=== PATIENT | male | born 1940 | race Caucasian/White ===

== ENCOUNTER 2019-01-22 10:46 | Observation (INO) ==
--- NOTE | 2019-01-22 10:56 | Emergency Department Note ---
Disposition Clinical Impression: Ischemic stroke CKD (chronic kidney disease) Qualifiers: Chronic kidney disease stage: unspecified stage Qualified Code(s): N18.9 - Chr onic kidney disease, unspecified Disposition: Admitted As Inpatient Condition: Good Forms: ED Satisfaction Letter Time of Disposition: 11:45 General Adult HPI - General Stated complaint: neuro symptoms Time Seen by Provider: 01/22/19 10:49 Source: patient Limitations: no limitations Nursing Notes Reviewed: Yes Vital Signs Reviewed: Yes - History of Present Illness Pain Scale: 0 - Related Data Home Medications Medication Instructions Recorded Confirmed Ferrous Gluconate 325 mg PO BID 01/12/15 01/22/19 Loratadine [Claritin] 10 mg PO DAILY 01/12/15 01/22/19 Metoprolol [Lopressor] 12.5 mg PO BID 01/12/15 01/22/19 Multivitamin [Multi-Day Vitamins] 1 tab PO DAILY 01/12/15 01/22/19 Ranitidine HCl [Zantac] 150 mg PO BID 01/12/15 01/22/19 Aspirin 81 mg PO DAILY 02/01/15 01/22/19 Nitroglycerin [Nitrostat] 0.4 mg SL PRN PRN 01/22/19 01/22/19 Previous Rx's Medication Instructions Recorded Isosorbide MONOnitrate (24 HR) 60 mg PO DAILY #30 tab.er.24h 02/01/15 [Imdur] Allergies Allergy/AdvReac Type Severity Reaction Status Date / Time No Known Allergies Allergy Verified 01/12/15 14:04 Past Medical History - Past Medical History Medical history: Reports: asthma, GERD, hypertension, kidney stones Surgical history: Reports: herniorrhaphy Psychiatric history: Reports: no psych history - Social History Smoking Status: Former smoker Smokeless Tobacco Status: No Alcohol use: Reports: rarely Drug use: Reports: none Physical Exam - General Limitations: no limitations General appearance: alert, in no apparent distress Course Vital Signs Temperature 97.6 F 01/22/19 10:50 Pulse Rate 49 01/22/19 10:50 Respiratory Rate 18 01/22/19 10:50 Blood Pressure 112/69 01/22/19 10:50 O2 Sat by Pulse Oximetry 98 01/22/19 10:50 Temperature 97.6 F 01/22/19 10:50 Pulse Rate 46 01/22/19 11:32 Respiratory Rate 14 01/22/19 11:32 Blood Pressure 119/74 01/22/19 11:32 O2 Sat by Pulse Oximetry 99 01/22/19 11:32 Oxygen Delivery Oxygen Delivery Room Air Medical Decision Making - Lab Data Result diagrams: 01/22/19 11:07 01/22/19 11:07 Lab Results 01/22/19 01/22/19 01/22/19 Range/Units 11:07 11:07 11:07 WBC 6.9 (4.3-11.1) K/mcL RBC 4.87 (4.19-5.50) M/mcL Hgb 15.0 (12.9-16.9) g/dL Hct 46.0 (37.5-50.1) % MCV 94.5 (83.0-100.0) fL MCH 30.8 (28.0-33.3) pg MCHC 32.6 (31.6-35.5) g/dL RDW 13.1 (11.5-14.5) % Plt Count 197 (140-400) K/mcL MPV 9.5 (9.4-12.4) fL PT 11.5 (9.4-12.1) Seconds INR 1.0 APTT 32.5 (26.0-36.0) Seconds Sodium 138 (136-145) mEq/L Potassium 5.2 H (3.5-5.1) mEq/L Chloride 106 (98-107) mEq/L Carbon Dioxide 29 (23-29) mEq/L BUN 31 H (8-23) mg/dL Creatinine 1.54 H (0.70-1.30) mg/dL Est GFR ( Amer) 53 L (> 60) Est GFR (Non-Af Amer) 44 L (> 60) BUN/Creatinine Ratio 20 (6-26) Glucose 100 (70-105) mg/dL Calculated Osmolality 293 (280-300) Calcium 8.9 (8.6-10.3) mg/dL Troponin I < 0.03 (< 0.04) ng/mL TSH 2.521 (0.340-5.600) mcIU/mL Critical Care Time Critical Care Time: Yes Total Critical Care Time: 35 Attestation: Critical care performed: Time is exclusive of separately billable procedures. Time includes: direct patie nt care, patient reassessment, coordination of patient care, interpretation of data (laboratory data, radiology data, and respiratory data), review of patient's medical records, medical consultation and documentation of patient care. Procedures included in critical care time: Procedures excluded from critical care time: Attestation Statement - Attestation Attestation: I examined this patient and my medical decision-making was reviewed with the Resident Physician. I agree with the documented findings, disposition and treatment plan as described except to the extent set forth below. Patient to the ED with a sudden onset of difficulty speaking and weakness. Patient was at the [employer]. He waited until symptoms improve then drove home. noticed his speech was slurred. He is complaining of some right arm tingling. She brought him to the ED. On exam he is awake alert and appropriate. His NIH is scored as to with the sensory discrepancy on the arm and some mild slurred speech. Plan. Stroke alert was called. Patient CT scan at this time. Patient does have a history of medical brain injury from the [place]. Likely not a TPA candidate. Pelvis stroke performed. Not a TPA candidate. Symptoms are improving. He is not a candidate for tpa secondary to his prior TBI. We will admit to medicine. Labs still pending at this time.
--- NOTE | 2019-01-22 11:09 | Emergency Department Note ---
Disposition Clinical Impression: Ischemic stroke CKD (chronic kidney disease) Qualifiers: Chronic kidney disease stage: unspecified stage Qualified Code(s): N18.9 - Chr onic kidney disease, unspecified Disposition: Admitted As Inpatient Condition: Good Forms: ED Satisfaction Letter Time of Disposition: 11:44 General Adult HPI - General Chief complaint: ED Neuro Symptoms/Deficit Stated complaint: neuro symptoms Time Seen by Provider: 01/22/19 10:49 Source: patient Limitations: no limitations Nursing Notes Reviewed: Yes Vital Signs Reviewed: Yes - History of Present Illness HPI Narrative: 78-year-old male presents [facility] department concern for slurred speech. At 9:30, patient was leaving breakfast, and could not get his words out. Afterwards, he had difficulty with ambulation. Patient came to the emergency department. He was still slurring words per his and him. Also reports some numbness and tingling around his lips. 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 Is cancer free at this time. Not on any blood thinning medications. Pain Scale: 0 - Related Data Home Medications Medication Instructions Recorded Confirmed Ferrous Gluconate 325 mg PO BID 01/12/15 03/22/16 Loratadine [Claritin] 10 mg PO DAILY 01/12/15 03/22/16 Metoprolol [Lopressor] 25 mg PO BID 01/12/15 03/22/16 Multivitamin [Multi-Day Vitamins] 1 tab PO DAILY 01/12/15 03/22/16 Ranitidine HCl [Zantac] 150 mg PO BID 01/12/15 03/22/16 Aspirin 81 mg PO DAILY 02/01/15 03/22/16 Nitroglycerin [Nitrostat] 0.4 mg SL PRN PRN 01/22/19 01/22/19 Previous Rx's Medication Instructions Recorded Isosorbide MONOnitrate (24 HR) 60 mg PO DAILY #30 tab.er.24h 02/01/15 [Imdur] Allergies Allergy/AdvReac Type Severity Reaction Status Date / Time No Known Allergies Allergy Verified 01/12/15 14:04 All systems ED: reviewed and negative except as stated. Review of Systems: As Per HPI Constitutional: Denies: fever Cardiovascular: Denies: chest pain Respiratory: Denies: dyspnea Gastrointestinal: Denies: abdominal pain Neurological: Reports: weakness, numbness, paresthesias, abnormal gait Past Medical History - Past Medical History Attestation: Yes The following information was validated with the patient. Medical history: Reports: asthma, GERD, hypertension, kidney stones Surgical history: Reports: herniorrhaphy Psychiatric history: Reports: no psych history - Social History Smoking Status: Former smoker Smokeless Tobacco Status: No Alcohol use: Reports: rarely Drug use: Reports: none Physical Exam - General Limitations: no limitations General appearance: alert, in no apparent distress - Head Head exam: normocephalic - Eye Eye exam: Present: EOMI - ENT ENT exam: mucous membranes moist - Neck Neck exam: Present: trachea midline - Chest Chest inspection: Present: symmetric chest wall rise - Respiratory Respiratory exam: Present: normal lung sounds bilaterally. Absent: respiratory distress, accessory muscle use - Cardiovascular Cardiovascular exam: Present: normal rhythm, bradycardia, normal heart sounds - Abdominal Exam Abdominal exam: Present: soft, Non-Tender. Absent: distention, guarding, rebound - Extremities Exam Extremities exam: Present: normal capillary refill - Back Exam Back exam: Present: full ROM - Neurological Exam Neurological exam: Present: alert, oriented X3 - Psychiatric Psychiatric exam: Present: normal affect, normal mood - Skin Skin exam: Present: warm, dry, intact, normal color. Absent: rash Course Vital Signs Temperature 97.6 F 01/22/19 10:50 Pulse Rate 49 01/22/19 10:50 Respiratory Rate 18 01/22/19 10:50 Blood Pressure 112/69 01/22/19 10:50 O2 Sat by Pulse Oximetry 98 01/22/19 10:50 Temperature 97.6 F 01/22/19 10:50 Pulse Rate 46 01/22/19 11:32 Respiratory Rate 14 01/22/19 11:32 Blood Pressure 119/74 01/22/19 11:32 O2 Sat by Pulse Oximetry 99 01/22/19 11:32 Oxygen Delivery Oxygen Delivery Room Air Medical Decision Making - MDM Narrative Medical decision making narrative: 78-year-old male presents emergency department with concern for strokelike sy mptoms. NIH currently 2. Glucose in the 70s Stroke alert was called. Stroke neurologist came on at 1108. CT read was back at 1111. After evaluation of the patient, coupling with improvement of symptoms, stroke neurologist did not recommend any TPA. We did give aspirin. Patient with creatinine within his normal range. Potassium is mildly elevated at 5.2 which is not abnormal for him. No peaked T waves. No need for treatment for this at this time. Patient to be admitted to medicine. - Lab Data Result diagrams: 01/22/19 11:07 01/22/19 11:07 Lab Results 01/22/19 01/22/19 01/22/19 Range/Units 11:07 11:07 11:07 WBC 6.9 (4.3-11.1) K/mcL RBC 4.87 (4.19-5.50) M/mcL Hgb 15.0 (12.9-16.9) g/dL Hct 46.0 (37.5-50.1) % MCV 94.5 (83.0-100.0) fL MCH 30.8 (28.0-33.3) pg MCHC 32.6 (31.6-35.5) g/dL RDW 13.1 (11.5-14.5) % Plt Count 197 (140-400) K/mcL MPV 9.5 (9.4-12.4) fL PT 11.5 (9.4-12.1) Seconds INR 1.0 APTT 32.5 (26.0-36.0) Seconds Sodium 138 (136-145) mEq/L Potassium 5.2 H (3.5-5.1) mEq/L Chloride 106 (98-107) mEq/L Carbon Dioxide 29 (23-29) mEq/L BUN 31 H (8-23) mg/dL Creatinine 1.54 H (0.70-1.30) mg/dL Est GFR ( Amer) 53 L (> 60) Est GFR (Non-Af Amer) 44 L (> 60) BUN/Creatinine Ratio 20 (6-26) Glucose 100 (70-105) mg/dL Calculated Osmolality 293 (280-300) Calcium 8.9 (8.6-10.3) mg/dL Troponin I < 0.03 (< 0.04) ng/mL - EKG Data EKG #1 EKG attestation: Yes I reviewed and interpreted this EKG. EKG results narrative: 1105 Heart rate 46 bpm, [place] 185 ms, QRS duration 108 ms QT 474 ms, Sinus bradycardia with no ischemic ST changes. NIH Stroke Scale - Level of Consciousness LOC: Alert - LOC Questions LOC Questions: Answers both correctly - LOC Commands LOC Commands: Performs both correctly - Best Gaze Best Gaze: Normal - Visual Visual: No visual loss - Facial Palsy Facial Palsy: Normal - Motor Arms Motor Arm-Left: No drift for 10 seconds Motor Arm-Right: No drift for 10 seconds - Motor Legs Motor Leg-Left: No drift for 5 seconds Motor Leg-Right: No drift for 5 seconds - Limb Ataxia Limb Ataxia: Normal, No Ataxia - Sensory Sensory: Mild to moderate loss, "not as sharp" - Best Language Best Language: No aphasia - Dysarthria Dysarthria: Mild, slurs some words - Extinction and Inattention Extinction and Inattention: Normal - NIHSS Total Score NIHSS Total Score: 2
[2019-01-22 11:15] LABS: Mean Corpuscular HGB Conc 32.6 g/dL (31.6-35.5); Mean Corpuscular Hemoglobin 30.8 pg (28.0-33.3); Mean Corpuscular Volume 94.5 fL (83.0-100.0); Mean Platelet Volume 9.5 fL (9.4-12.4); Platelet Count 197 K/mcL (140-400); Red Blood Count 4.87 M/mcL (4.19-5.50); Red Cell Distribution Width 13.1 % (11.5-14.5); White Blood Count 6.9 K/mcL (4.3-11.1)
[2019-01-22] MEDS ORDERED: Aspirin 81 MG TAB.CHEW PO STA (11:18)
[2019-01-22 11:28] LABS: Prothrombin Time 11.5 Seconds (9.4-12.1)
[2019-01-22 11:31] LABS: Activated Partial Thrombo Time 32.5 Seconds (26.0-36.0)
[2019-01-22 11:35] LABS: BUN/Creatinine Ratio 20 (6-26); Blood Urea Nitrogen 31 mg/dL (8-23); Calcium 8.9 mg/dL (8.6-10.3); Carbon Dioxide 29 mEq/L (23-29); Chloride 106 mEq/L (98-107); Glucose 100 mg/dL (70-105); Osmolality,Calculated 293 (280-300); Potassium 5.2 mEq/L (3.5-5.1); Sodium 138 mEq/L (136-145); Troponin I < 0.03 ng/mL (< 0.04); eGFR For African Americans 53 (> 60); eGFR For Non-African Americans 44 (> 60)
[2019-01-22 12:22] LABS: Thyroid Stimulating Hormone 2.521 mcIU/mL (0.340-5.600)
[2019-01-22 12:31] LABS: Folate 8.6 ng/mL (3.0-16.0)
[2019-01-22] MEDS ORDERED: Naloxone 0.4 MG/ML INJ IVP PRN (14:16)
[2019-01-22] MEDS ORDERED: Ondansetron 4 MG/2 ML VIAL IVP PRN (14:21)
[2019-01-22] MEDS ORDERED: Acetaminophen 325 MG TABLET PO PRN (14:21)
--- NOTE | 2019-01-22 14:39 | Internal Med History&Physical ---
Date of Encounter: 01/22/19 Time of Encounter: 13:30 Internal Medicine - H&P: HPI Admitted From: Emergency Dept Plans for Post Hospital Care: Home History of present illness: Mr. Jeffry Doan is a 78 year old male history of GERD, hypertension, n ephrolithiasis and asthma. He presented to the ED with complaints of slurred speech that began around 9:30 AM while at [employer]. Patient also reports aphasia which he described as difficulty articulating his words. His was at the bedside Julianna can be reached at [phone], she stated his last known well time was 8 AM this morning when he woke up and denies patient having any slurred speech or facial droop then. Patient also stated that subsequently he developed paresthesias around his lips and ataxic gait route he denies any prior episode of stroke however a CT scan of the head performed in the ED at a stroke alert did reveal encephalomalacia involving the temporal and frontal lobes likely due to prior infarct. However no acute intracranial abnormalities. He was evaluated by the neurologist from [facility] via telemedicine was not considered a candidate for TPA given if his symptoms has resolved. Past Med Surg Social Fam HX - Past Medical History Medical history: asthma, GERD, hypertension, kidney stones Additional medical history: diverticulosis Psychiatric history: no psych history - Past Surgical History Surgical History: herniorrhaphy Additional surgical history: rt hernia repair. left hip. tenosynovectomy. esphogectomy. concussion connor holes to releive pressure. dev.septum. left hip repl. right ctr. TBI - Social History Smoking Status: Former smoker Smokeless Tobacco Status: No Alcohol use: rarely Drug use: none - Family History Sister Hx Family Cancer: Yes Paternal Grandfather Hx Family Cardiac Disorders: Yes Maternal Grandfather Hx Family Cardiac Disorders: Yes Father Hx Family Cardiac Disorders: Yes Maternal Grandmother Hx Family Cardiac Disorders: Yes Paternal Grandmother Hx Family Cardiac Disorders: Yes Son Hx Family Neurologic Disorders: Yes Mother Hx Family Cardiac Disorders: Yes Hx Family Endocrine Disorder: Yes Internal Medicine - H&P: Meds Ferrous Gluconate 325 mg PO BID 01/12/15 [History] Loratadine [Claritin] 10 mg PO DAILY 01/12/15 [History] Metoprolol [Lopressor] 12.5 mg PO BID 01/12/15 [History] Multivitamin [Multi-Day Vitamins] 1 tab PO DAILY 01/12/15 [History] Ranitidine HCl [Zantac] 150 mg PO BID 01/12/15 [History] Aspirin 81 mg PO DAILY 02/01/15 [History] Isosorbide MONOnitrate (24 HR) [Imdur] 60 mg PO DAILY #30 tab.er.24h 02/01/15 [Rx] Nitroglycerin [Nitrostat] 0.4 mg SL PRN PRN 01/22/19 [History] Allergy/AdvReac Type Severity Reaction Status Date / Time No Known Allergies Allergy Verified 01/12/15 14:04 All Systems PM: A 10-system review of systems was performed and is negative for pertinent findings except as documented above in the HPI. Review of systems: GENERAL: Denies fever, chills, fatigue or night sweats. DERMATOLOGIC: Denies itch, rash or lesions HEENT: Denies headache, blurriness, diplopia or decreased visual acuity, ear pain, tinnitus, rhinorrhea, sinus tenderness or sore throat RESPIRATORY: Denies SOB, cough, hemoptysis or pleuritic chest pain CARDIOVASCULAR: Denies chest pain, LE edema, palpitation or syncope GASTRO INTESTINAL: Denies cramps, nausea/vomiting, diarrhea or constipation, melena MUSCULOSKELATAL: Denies muscle pain/weakness, joint tenderness/pain or swelling PSYCH: Denies worsening anxiety, or depression NEURO: Denies vertigo, dizziness, but report ataxia GENITURINARY: Denies dysuria, nocturia or urinary incontinence - Constitutional Vitals: Temp Pulse Resp BP Pulse Ox 97.6 F 50 14 109/77 99 01/22/19 10:50 01/22/19 13:43 01/22/19 13:43 01/22/19 13:43 01/22/19 13:43 Exam: GENERAL: NAD, A&O x3, pleasant and conversant, at his bedside SKIN: No skin lesions or rashes, non-jaundiced EYES: EOMI, PERRLA, no sclera icterus HENT: Head atraumatic, no facial asymmetry, frontal and maxillary sinus non- tender, normal hearing, oropharynx and mucosa moist and without any exudates NECK: No cervical lymphadenopathy, trachea midline, thyroid is palpable does not appear enlarged LUNGS: vesicular breath sounds, clear to auscultation, no wheeze, rhonchi, rales or crackles. Non labored respirations HEART: Normal rate and rhythm, no murmurs or rubs ABDOMEN: soft, non-tender, non-distended, bowel sounds x 4 normoactive EXTRMITIES: No LE asymmetry, No LE edema, pedal pulses 1+ and radial pulses 2 + and equal bilaterally NEURO: Speech and comprehension appears intact. Cranial nerve II-XII grossly intact as examined. Cerebellar testing with no dysmetria, however gait and stance testing was significant with patient becoming ataxic with heel / toes testing PSYCH: Cooperative, non- anxious or irritable, mood and affect is appropriate Internal Med - H&P Results - Labs CBC & Chem 7: 01/22/19 11:07 01/22/19 11:07 Labs: Short CBC 01/22/19 Range/Units 11:07 WBC 6.9 (4.3-11.1) K/mcL Hgb 15.0 (12.9-16.9) g/dL Hct 46.0 (37.5-50.1) % Plt Count 197 (140-400) K/mcL BMP 01/22/19 11:07 Sodium 138 Potassium 5.2 H Chloride 106 Carbon Dioxide 29 BUN 31 H Creatinine 1.54 H Glucose 100 Calcium 8.9 Cardiac Enzymes 01/22/19 Range/Units 11:07 Troponin I < 0.03 (< 0.04) ng/mL - Impressions ITS Impressions Head CT 01/22/19 11:07 IMPRESSION: 1. No acute intracranial abnormality. These findings were discussed with Dr Trevizo at 11:10 a.m. 01/22/2019. 2. Encephalomalacia involving the temporal and frontal lobes likely due to prior infarcts. 3. Diffuse cerebral atrophy with chronic small vessel ischemic disease. D/ / Jordan Candelaria MD / Jordan Candelaria MD Interpreting Provider: Jordan Candelaria MD - Assessment and Plan (1) TIA (transient ischemic attack) Current Visit: Yes Status: Acute Assessment and plan: Patient likely had TIA since his symptoms resolved within [address] of the head does reveal Prior strokes but patient denies formal diagnosis of stroke. His ABCD 2 score for stroke is 2 at best however given his prior temporofrontal lobe infarct would initiate neuro checks every 4 for the next 24 hours up to an lipid panel discussed with patient the benefit of statin therapy. He endorses a history of being told he had some plaques in his carotid artery was also obtain a ultrasound of the carotids bilaterally as well as MRI of the brain given the findings at the CT imaging. We will also check TSH B12 and folate given his reported paresthesia, check A1c and LFTs and lipid panel (2) Abnormal CT scan, head Current Visit: Yes Status: Acute Assessment and plan: head CT revealed encephalomalacia involving the temporal and frontal lobes, patient reports ataxia will obtain MRI brain. Discussed with patient regarding secondary prevention initiating statin therapy aspirin. He reports intolerance to pravastatin therapy but could not tell which one will start him on Crestor (3) CKD (chronic kidney disease) stage 3, GFR 30-59 ml/min Current Visit: Yes Status: Acute Assessment and plan: Serum creatinine is stable at baseline March 2016 will monitor (4) Hyperkalemia Current Visit: Yes Status: Acute Assessment and plan: Mildly elevated potassium treated with one dose of Kayexalate repeat BMP in 1 (5) DVT prophylaxis Current Visit: Yes Status: Acute Assessment and plan: Heparin per protocol - Time Spent With Patient Total time spent is greater than 50% in coordination of care (as documented) at patient's floor/unit and/or counseling patient:
[2019-01-22] MEDS: 0.9 % Sodium Chloride 1,000 ML IVC SCH (17:07)
[2019-01-22] MEDS: *HR* Heparin 5,000 UNIT/ML VIAL SQ SCH (21:52)
[2019-01-23 02:43] LABS: Basophils % 0.7 %; Eosinophils # 0.4 K/mcL (0.0-0.6); Eosinophils % 6.5 %; Hematocrit 43.2 % (37.5-50.1); Hemoglobin 14.2 g/dL (12.9-16.9); Immature Granulocytes % 0.5 % (0-4); Lymphocytes # 1.4 K/mcL (0.6-4.6); Lymphocytes % 24.5 %; Mean Corpuscular HGB Conc 32.9 g/dL (31.6-35.5); Mean Corpuscular Hemoglobin 30.9 pg (28.0-33.3); Mean Corpuscular Volume 93.9 fL (83.0-100.0); Mean Platelet Volume 9.9 fL (9.4-12.4); Monocytes # 0.6 K/mcL (0.0-1.3); Monocytes % 11.1 %; Neutrophils # 3.2 K/mcL (1.6-8.9); Platelet Count 192 K/mcL (140-400); Segmented Neutrophils % 56.7 %; White Blood Count 5.7 K/mcL (4.3-11.1)
[2019-01-23 03:06] LABS: Albumin 3.6 g/dL (3.5-5.7); Bilirubin,Direct 0.1 mg/dL (0.0-0.2); Bilirubin,Indirect 0.3 mg/dL (0.0-1.2); Bilirubin,Total 0.4 mg/dL (0.3-1.0); Globulin 1.8 g/dL (2.4-3.5); Total Protein 5.4 g/dL (6.4-8.9)
[2019-01-23 03:11] LABS: BUN/Creatinine Ratio 20 (6-26); Blood Urea Nitrogen 28 mg/dL (8-23); Calcium 8.2 mg/dL (8.6-10.3); Carbon Dioxide 24 mEq/L (23-29); Chloride 105 mEq/L (98-107); Chol/HDL Ratio 4.2 (0-4.9); Cholesterol 140 mg/dL (< 200); Glucose 111 mg/dL (70-105); HDL Cholesterol 33 mg/dL (40-59); LDL Cholesterol,Calculated 85 mg/dL (0-99); Magnesium 2.1 mg/dL (1.6-2.6); Osmolality,Calculated 292 (280-300); Potassium 4.1 mEq/L (3.5-5.1); Sodium 138 mEq/L (136-145); Triglycerides 110 mg/dL (< 150); eGFR For African Americans > 60 (> 60); eGFR For Non-African Americans 50 (> 60)
[2019-01-23] MEDS: 0.9 % Sodium Chloride 1,000 ML IVC SCH (05:51)
[2019-01-23] MEDS: *HR* Heparin 5,000 UNIT/ML VIAL SQ SCH ×2 (05:56→14:08)
[2019-01-23] MEDS ORDERED: Loratadine 10 MG TABLET PO SCH (09:00)
[2019-01-23] MEDS ORDERED: Cyanocobalamin (B-12) 1,000 MCG TABLET PO SCH (09:00)
[2019-01-23] MEDS ORDERED: Aspirin 81 MG TAB.CHEW PO SCH (09:00)
[2019-01-23] MEDS ORDERED: Multivit/Ca/Min/Fe/FA 1 TAB TABLET PO SCH (09:00)
[2019-01-23] MEDS ORDERED: Famotidine 20 MG TABLET PO SCH (09:00)
--- NOTE | 2019-01-23 09:02 | Neurology - Consult Note ---
<Susan Martin N - Last Filed: 01/23/19 11:41> Date of Encounter: 01/23/19 Time of Encounter: 09:02 Assessment and Plan (1) TIA (transient ischemic attack) Current Visit: Yes Status: Acute Patient presented to the ED after acute onset of dizziness, ambulatory dysfunction, and dysarthria, which has since completely resolved. Patient denies having ever experienced symptoms like this before, and denies any previous history of stroke. 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 He reports that he was started on aspirin by either his PCP or his control electrician, and has been on statin therapy in the past; however, this was discontinued secondary to severe bilateral hand and foot cramping that persisted despite lowered dose. CT of the head demonstrated no acute intracranial abnormalities, though encephalomalacia of the temporal and frontal lobes was noted, likely due to previous infarcts. Additionally, diffuse cerebral atrophy was noted, with chronic small vessel ischemic disease. Brain MRI demonstrated similar findings, as well as left sphenoid sinusitis. Preliminary carotid doppler report shows bilateral nonstenotic place in the ICA/bifurcation. Recommendations: - Obtain echocardiogram. - Continue statin. Start plavix 75mg daily; discontinue aspirin 2 days after initiation of plavix therapy. History of Present Illness Chief complaint: Neuro symptoms HPI: Mr. 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 Patient reports that he was in the donut shop yesterday morning and became dizzy upon standing, which he initially thought would resolve quickly. He attempted to ambulate to the bathroom; however, he reports that his "legs wouldn't work", and describes his gait as "shuffling". He reports that he was also unable to speak, as his words were "garbled" despite knowing what he wanted to say. He also reports numnbess and tingling of his lips. He states that he waited for his symptoms to improve, which they did after 15-20 minutes; however, upon returning home, his noticed that he was still stumbling when walking and that his speech was slurred, and encouraged him to seek evaluation. In the ED, patient was evaluated by [facility] via telestroke; however, no immediate intervention was recommended as his symptoms had resolved at that time. On evaluation this morning, patient endorses the above history, and reports that he has had no symptom recurrence since admission to the hospital. He denies any numbness, weakness, speech difficulties, or ambulatory dysfunction. Past Med Surg Social Fam HX - Past Medical History Medical history: asthma, GERD, hyperlipidemia, hypertension, kidney stones Additional medical history: Diverticulosis Psychiatric history: no psych history - Past Surgical History Surgical History: herniorrhaphy Additional surgical history: Hernia repair. Partial colectomy. tenosynovectomy. esphogectomy. Concussion connor holes to releive pressure. Deviated septum. R hip replacement. L hip replacement. TBI - Social History Smoking Status: Former smoker Smokeless Tobacco Status: No Alcohol use: rarely Drug use: none - Family History Sister Living Status: Age at : 65 Cause of : Pancreatic cancer Hx Family Cancer: Yes (Pancreatic) Paternal Grandfather Hx Family Cardiac Disorders: Yes Maternal Grandfather Hx Family Cardiac Disorders: Yes Father Living Status: Age at : 84 Cause of : CVA Hx Family Cardiac Disorders: Yes (CVA, heart failure) Hx Family Respiratory Disorders: Yes (Emphysema) Maternal Grandmother Hx Family Cardiac Disorders: Yes Paternal Grandmother Hx Family Cardiac Disorders: Yes Son Hx Family Neurologic Disorders: Yes (Epilepsy) Mother Age at : 86 Cause of : Heart failure Hx Family Cardiac Disorders: Yes (CHF, CABG, CAD, atrial fibrilation, AICD) Hx Family Endocrine Disorder: Yes (DM) Medications and Allergies Metoprolol [Lopressor] 12.5 mg PO BID 01/12/15 [History] Nitroglycerin [Nitrostat] 0.4 mg SL PRN PRN 01/22/19 [History] Dicyclomine [Bentyl] 10 mg PO Q8H PRN 01/23/19 [History] Ferrous Gluconate 324 mg PO DAILY 01/23/19 [History] Isosorbide MONOnitrate (24 HR) [Imdur] 60 mg PO DAILY 01/23/19 [History] Loratadine [Claritin] 10 mg PO HS 01/23/19 [History] Pantoprazole Sodium [Protonix] 40 mg PO BID 01/23/19 [History] Ranolazine [Ranolazine ER] 500 mg PO BID 01/23/19 [History] raNITIdine HCl [Ranitidine HCl] 300 mg PO BID 01/23/19 [History] Allergy/AdvReac Type Severity Reaction Status Date / Time No Known Allergies Allergy Verified 01/23/19 12:52 All Systems: The remainder of the systems were reviewed and are negative - Constitutional Constitutional ROS IM: no anorexia, no chills, no frequent falls - Cardiovascular Cardiovascular ROS IM: no chest pain - Respiratory Respiratory IM: no dyspnea - Musculoskeletal Musculoskeletal ROS IM: arthralgias (reports left shoulder pain since injury ~1 month ago), no abnormal gait - Neurological Neurological ROS: numbness (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), no abnormal gait, no abnormal speech, no dizziness, no focal weakness Physical Examination - Vital Signs Vital Signs: Initial Vital Signs Temp Pulse Resp BP Pulse Ox 97.6 F 49 18 112/69 98 01/22/19 10:50 01/22/19 10:50 01/22/19 10:50 01/22/19 10:50 01/22/19 10:50 - Constitutional General appearance: comfortable - Neurologic Sensorimotor examination: intact Detailed motor examination: grossly full strength in all extremities, full strength in all major muscle groups Motor examination - right side: 5/5: deltoids, biceps, triceps, sports [employer] membership advisors, hip flexors, tibialis Anterior, quadriceps, toe extension (EHL), plantarflexion Motor examination - left side: 5/5: deltoids, biceps, triceps, hip flexors, sports health club membership advisors, quadriceps, tibialis Anterior, toe extension (EHL), plantarflexion Detailed sensory examination: intact, light touch Reflex and gait examination: normal gait Reflexes: Biceps: 2+, Patella: 2+, Achilles: 2+ Mental Status Examination: awake, alert, oriented to person, oriented to place, oriented to time, follows commands appropriately, answers questions appropriately, no agnosia, no aphasia, no aproxia Cranial nerve examination: PERRL, EOMI, sensory to face intact, mastication intact, no facial asymmetry is present, no dysarthria, soft palate elevates bilaterally upon phonation, gag reflex intact, flexes SCM and trapezius muscles symmetrically with full power, tongue protrudes midline, no atrophy or facial fasiculations present Results - Laboratory Findings CBC and BMP: 01/23/19 01:18 01/23/19 01:18 Abnormal lab findings: Abnormal lab results Potassium 5.2 mEq/L (3.5-5.1) H 01/22/19 11:07 BUN 28 mg/dL (8-23) H 01/23/19 01:18 Creatinine 1.37 mg/dL (0.70-1.30) H 01/23/19 01:18 Est GFR ( Amer) 53 (> 60) L 01/22/19 11:07 Est GFR (Non-Af Amer) 50 (> 60) L 01/23/19 01:18 Glucose 111 mg/dL (70-105) H 01/23/19 01:18 Calcium 8.2 mg/dL (8.6-10.3) L 01/23/19 01:18 AST 9 Units/L (13-39) L 01/23/19 01:18 Serum Total Protein 5.4 g/dL (6.4-8.9) L 01/23/19 01:18 Globulin 1.8 g/dL (2.4-3.5) L 01/23/19 01:18 HDL Cholesterol 33 mg/dL (40-59) L 01/23/19 01:18 Vitamin B12 134 pg/mL (250-1100) L 01/22/19 11:06 Consult Discharge Plan - Plan Referrals: Baldev Zepeda MD [Primary Care Provider] - <Maggie Cisneros I - Last Filed: 01/23/19 14:38> Date of Encounter: 01/23/19 Assessment and Plan (1) TIA (transient ischemic attack) Current Visit: Yes Status: Acute Pt was seen and examined, my medical decision was reviewed with the Resident Physician, I agree with the documented findings, disposition and treatment plan, as described except to the extent set forth below Patient admitted for TIA like symptoms nonfocal neurological examination now he will be getting a stroke workup will follow the patient with you Maggie Cisneros MD History of Present Illness HPI: Mr. Jeffry Doan is a 78 year old male All Systems: The remainder of the systems were reviewed and are negative Physical Examination - Vital Signs Vital Signs: Initial Vital Signs Temp Pulse Resp BP Pulse Ox 97.6 F 49 18 112/69 98 01/22/19 10:50 01/22/19 10:50 01/22/19 10:50 01/22/19 10:50 01/22/19 10:50 - Exam Exam: GENERAL: Comfortable in no acute distress HEENT: Normal LUNGS: CTA HEART: RRR, S1 S2 Audible, no murmur EXTREMITIES: No Pedal edema. DETAILED NEUROLOGICAL EXAMINATION: MENTAL STATUS: Oriented to person, place, date and situation. Memory: knows the President, Aware of recent events Recent Memory Intact, Attention span is normal Cranial Nerve Examination: CN - II: Visual Acuity, Field of Vision Normal, Fundus examination: No disk edema, Pupils- size shape reaction to light and accommodation: All normal. CN III, IV, : External ocular movements were intact, Pupils were reactive, Nodrooping of the eyelids CN V: Sensation over the face to light touch and pinprick all normal. Corneal reflexes not tested, jaw jerk normal. CN VII: No facial asymmetry, no flattening of nasolabial folds, no difficulty in closing the eyes, no loss of forehead wrinkles, no difficulty in eye-closure, frowning raising eyebrows. CNVIII: No significant hearing loss CN IX, X: Uvula centralized not deviated, Gag reflex: Not tested CN X1: Sternocleidomastoid, trapezius, normal or evidence of any weakness. CN X11: No Dysarthria, no wasting or fibrilation f tongue muscles, no deviation, tongue muscle strength normal. Motor examination: No hypertrophy, tone was normal, power grade 0-5 Upper limbs Proximal- No difficulty in lifting the arms above the head. Distal- No weakness in distal muscles On formal testing 5/5 all over Lower limbs On formal testing 5/5 all over Coordination: [id number] normal. Target pursuit normal finger tapping normal, Rapid alternating moment of wrist normal Sensory system: Superficial sensations- Touch normal. Pain- Pinprick, Temperature all normal, Deep sensation normal, Joint position sense normal. Cortical sensation, Tactile discrimination, localization and extinction all normal. Deep tendon reflexes. Symmetrical bilateral, No evidence of Babinski. No sign of meningeal irritation Gait Examination: Deferred - Constitutional General appearance: comfortable Results - Laboratory Findings CBC and BMP: 01/23/19 01:18 01/23/19 01:18 Abnormal lab findings: Abnormal lab results Potassium 5.2 mEq/L (3.5-5.1) H 01/22/19 11:07 BUN 28 mg/dL (8-23) H 01/23/19 01:18 Creatinine 1.37 mg/dL (0.70-1.30) H 01/23/19 01:18 Est GFR ( Amer) 53 (> 60) L 01/22/19 11:07 Est GFR (Non-Af Amer) 50 (> 60) L 01/23/19 01:18 Glucose 111 mg/dL (70-105) H 01/23/19 01:18 Hemoglobin A1c 6.1 % (-5.6) H 01/23/19 01:18 Calcium 8.2 mg/dL (8.6-10.3) L 01/23/19 01:18 AST 9 Units/L (13-39) L 01/23/19 01:18 Serum Total Protein 5.4 g/dL (6.4-8.9) L 01/23/19 01:18 Globulin 1.8 g/dL (2.4-3.5) L 01/23/19 01:18 HDL Cholesterol 33 mg/dL (40-59) L 01/23/19 01:18 Vitamin B12 134 pg/mL (250-1100) L 01/22/19 11:06
[2019-01-23 09:11] LABS: Estimated Average Glucose 128 mg/dl
[2019-01-23 16:11] VITALS: BP 130/70
--- NOTE | 2019-01-23 16:11 | Discharge Summary ---
Date of Encounter: 01/23/19 Time of Encounter: 16:05 - Discharge Diagnosis (1) TIA (transient ischemic attack) Priority: Primary Status: Acute (2) Abnormal CT scan, head Priority: Secondary Status: Acute (3) CKD (chronic kidney disease) stage 3, GFR 30-59 ml/min Priority: Secondary Status: Acute (4) Hyperkalemia Priority: Secondary Status: Acute Hospital course: Mr. Jeffry Doan is a 78 year old male with history of hypertension and hyperlipidemia who presented with acute onset slurred speech, paresthesias, ataxia, and dizziness concerning for acute stroke. Patient was outside TPA window on admission so did not receive TPA, however, symptoms self resolved quickly after admission and MRI imaging negative for acute stroke, however, did have evidence of previous strokes. Patient already on ASA 81 mg daily. Neurology was consulted, and recommended step up therapy to Plavix 75 mg daily. History of palpitations but recently had a Holter monitor without evidence of atrial fibrillation and no evidence of arrhythmias during hospital stay. -Patient will start Plavix and follow up with PCP -Recommend echocardiogram to complete TIA workup (patient requesting discharge so did not get done as an inpatient) Discharge discussed with: patient - Time Spent with Patient Total time spent providing and/or coordinating discharge services: 50 minutes Time spent: Greater than 30 minutes - Discharge Medications Prescriptions: New Clopidogrel Bisulfate [Plavix] 75 mg PO Q24H #30 tablet Continued Nitroglycerin [Nitrostat] 0.4 mg SL PRN PRN PRN Reason: Chest Pain Dicyclomine [Bentyl] 10 mg PO Q8H PRN PRN Reason: stomach Ferrous Gluconate 324 mg PO DAILY Isosorbide MONOnitrate (24 HR) [Imdur] 60 mg PO DAILY Loratadine [Claritin] 10 mg PO HS Pantoprazole Sodium [Protonix] 40 mg PO BID raNITIdine HCl [Ranitidine HCl] 300 mg PO BID Ranolazine [Ranolazine ER] 500 mg PO BID Metoprolol [Lopressor] 12.5 mg PO BID Home Medications: Metoprolol [Lopressor] 12.5 mg PO BID 01/12/15 [History] Nitroglycerin [Nitrostat] 0.4 mg SL PRN PRN 01/22/19 [History] Clopidogrel Bisulfate [Plavix] 75 mg PO Q24H #30 tablet 01/23/19 [Rx] Dicyclomine [Bentyl] 10 mg PO Q8H PRN 01/23/19 [History] Ferrous Gluconate 324 mg PO DAILY 01/23/19 [History] Isosorbide MONOnitrate (24 HR) [Imdur] 60 mg PO DAILY 01/23/19 [History] Loratadine [Claritin] 10 mg PO HS 01/23/19 [History] Pantoprazole Sodium [Protonix] 40 mg PO BID 01/23/19 [History] Ranolazine [Ranolazine ER] 500 mg PO BID 01/23/19 [History] raNITIdine HCl [Ranitidine HCl] 300 mg PO BID 01/23/19 [History] Allergies/Adverse Reactions: Allergy/AdvReac Type Severity Reaction Status Date / Time No Known Allergies Allergy Verified 01/23/19 12:52 Date of admission: 01/22/19 14:03 Primary care physician: Baldev Zepeda MD Consults: 01/23/19 07:41 Consult to Neurology [CONS] Routine Consulting Provider: [facility] Reason for Consult: TIAs through ASA therapy Call Completed: Yes - Constitutional Vitals: Temp Pulse Resp BP Pulse Ox 98.4 F 55 16 121/90 95 01/23/19 09:22 01/23/19 09:22 01/23/19 09:22 01/23/19 09:22 01/23/19 09:22 Exam: General: Ill-appearing and in no acute distress HEENT: No erythema of posterior pharynx. No exudates. Lymphatics: No mandibular or cervical lymphadenopathy Cardiovascular: RRR. No murmurs. No chest wall tenderness. Lungs: Clear to auscelltation bilaterally. Regular chest rise. Abdomen: Non-tender. No rebound or gaurding. Nl bowel sounds. Extremities: No edema. 2+ pulses radial and pedal pulses Skin: No rahses, abrasions, or contusions. Nl cap refill. Psych: Nl attention. A&Ox3 Neuro: instrument and control technician II-XII intact. 5/5 strength. Sensation to light touch and pinprick intact. - Patient Status Disposition: Home, Self-Care Condition: Good Functional capacity at discharge: independent ambulation Overall status at discharge: patient is back to baseline - Discharge Instructions Follow Up With: Baldev Zepeda MD [Primary Care Provider] - - Diet and Activity Activity: resume usual activities as tolerated Diet: advance to your usual diet
--- NOTE | 2019-01-24 09:44 | Electrocardiograph Report ---
[facility] [employer] Test Date: 2019-01-22 Pat Name: Hayden Doan Department: [id number] Room: 2NE17 Gender: M Foundry Operator: : 1940 Requested By: Melissa See Order Number: [id number] Reading MD: Dustin Parker Measurements Intervals [place] Rate: 46 P: 70 TN: 185 QRS: 66 QRSD: 108 T: 43 QT: 474 QTc: 415 Interpretive Statements Sinus bradycardia Low voltage, extremity leads Electronically Signed On 01-24-2019 9:42:40 EDT by Dustin Parker
== END 2019-01-23 18:24 | disposition home or self-care (01) ==
LOC: EMEROOARM 10:46 → 2NENU 10:46
PROVIDERS: ADMIT Pharmacist; ATTEND Pharmacist

== ENCOUNTER 2019-10-20 01:15 | Inpatient (IN) ==
[2019-10-20 01:52] LABS: Basophils % 0.5 %; Eosinophils # 0.2 K/mcL (0.0-0.6); Eosinophils % 1.8 %; Hemoglobin 14.5 g/dL (12.9-16.9); Immature Granulocytes % 0.4 % (0-4); Lymphocytes # 0.8 K/mcL (0.6-4.6); Lymphocytes % 9.6 %; Mean Corpuscular HGB Conc 31.5 g/dL (31.6-35.5); Mean Corpuscular Hemoglobin 30.1 pg (28.0-33.3); Mean Corpuscular Volume 95.4 fL (83.0-100.0); Mean Platelet Volume 9.4 fL (9.4-12.4); Monocytes # 0.7 K/mcL (0.0-1.3); Monocytes % 8.7 %; Neutrophils # 6.7 K/mcL (1.6-8.9); Platelet Count 172 K/mcL (140-400); Red Blood Count 4.82 M/mcL (4.19-5.50); Red Cell Distribution Width 13.7 % (11.5-14.5); White Blood Count 8.5 K/mcL (4.3-11.1)
[2019-10-20 01:57] LABS: Prothrombin Time 11.9 Seconds (9.4-12.1)
[2019-10-20 02:19] LABS: Potassium 4.7 mEq/L (3.5-5.1); Troponin I 0.08 ng/mL (< 0.04)
[2019-10-20] MEDS ORDERED: levoFLOXacin 750 MG/150 ML 750 MG/150 ML BAG IVPB ONE (02:27)
[2019-10-20] MEDS ORDERED: Isovue-370 500 ML BOTTLE IVP ONE (02:27)
[2019-10-20] MEDS ORDERED: Tdap (Boostrix) Vaccine 0.5 ML SYRINGE IM ONE (02:41)
[2019-10-20] MEDS ORDERED: Aspirin 81 MG TAB.CHEW PO ONE ×2 (02:42→06:15)
[2019-10-20] MEDS ORDERED: *HR* Heparin 5,000 UNIT/ML VIAL IVP PRN ×2 (04:55)
[2019-10-20] MEDS ORDERED: *HR* Heparin 5,000 UNIT/ML VIAL IVP ONE (04:55)
[2019-10-20] MEDS: Heparin 25,000 UNIT/250 ML D5W 25,000 UNIT/250 ML IV.SOLN IVC SCH (05:50)
[2019-10-20 06:08] LABS: Heparin anti-factor XA UFH 0.04 IU/mL (0.30-0.70); Prothrombin Time 11.7 Seconds (9.4-12.1)
[2019-10-20 06:58] LABS: Hematocrit 48.9 % (37.5-50.1); Hemoglobin 15.2 g/dL (12.9-16.9); Mean Corpuscular HGB Conc 31.1 g/dL (31.6-35.5); Mean Corpuscular Volume 96.4 fL (83.0-100.0); Mean Platelet Volume 9.8 fL (9.4-12.4); Platelet Count 160 K/mcL (140-400); Red Blood Count 5.07 M/mcL (4.19-5.50); Red Cell Distribution Width 13.6 % (11.5-14.5); White Blood Count 7.4 K/mcL (4.3-11.1)
[2019-10-20] MEDS ORDERED: Naloxone 0.4 MG/ML INJ IVP PRN (07:48)
[2019-10-20] MEDS ORDERED: Ondansetron 4 MG/2 ML VIAL IVP PRN (07:48)
[2019-10-20] MEDS ORDERED: Nitroglycerin 0.4 MG TAB.SUBL SL PRN (09:22)
[2019-10-20 09:30] LABS: Troponin I 2.67 ng/mL (< 0.04)
[2019-10-20] MEDS: Isosorbide MONOnitrate (24 HR) 60 MG TAB.ER.24H PO SCH (13:16)
[2019-10-20] MEDS ORDERED: *HR* HYDROcodone/Acet 5/325 mg TABLET PO PRN (17:45)
[2019-10-20] MEDS ORDERED: Perflutren Lipid Microsphere 1.3 ML in 0.9 % Sodium Chloride 8.7 ML IVP ONE (18:51)
[2019-10-20] MEDS: Loratadine 10 MG TABLET PO SCH (20:05)
[2019-10-20] MEDS: Ranolazine 500 MG TAB.ER.12H PO SCH (20:07)
[2019-10-21 02:39] LABS: Basophils % 0.6 %; Eosinophils # 0.3 K/mcL (0.0-0.6); Eosinophils % 4.3 %; Hematocrit 41.8 % (37.5-50.1); Hemoglobin 13.7 g/dL (12.9-16.9); Immature Granulocytes % 0.4 % (0-4); Lymphocytes # 1.6 K/mcL (0.6-4.6); Lymphocytes % 23.1 %; Mean Corpuscular HGB Conc 32.8 g/dL (31.6-35.5); Mean Corpuscular Hemoglobin 30.8 pg (28.0-33.3); Mean Corpuscular Volume 93.9 fL (83.0-100.0); Mean Platelet Volume 9.5 fL (9.4-12.4); Monocytes # 0.7 K/mcL (0.0-1.3); Monocytes % 9.6 %; Neutrophils # 4.2 K/mcL (1.6-8.9); Platelet Count 169 K/mcL (140-400); Red Blood Count 4.45 M/mcL (4.19-5.50); Red Cell Distribution Width 13.6 % (11.5-14.5); White Blood Count 6.8 K/mcL (4.3-11.1)
[2019-10-21 02:56] LABS: BUN/Creatinine Ratio 20 (6-26); Blood Urea Nitrogen 25 mg/dL (8-23); Calcium 8.4 mg/dL (8.6-10.3); Carbon Dioxide 26 mEq/L (23-29); Chloride 105 mEq/L (98-107); Glucose 92 mg/dL (70-105); Magnesium 2.1 mg/dL (1.6-2.6); Osmolality,Calculated 288 (280-300); Potassium 4.3 mEq/L (3.5-5.1); Sodium 137 mEq/L (136-145); eGFR For African Americans > 60 (> 60); eGFR For Non-African Americans 57 (> 60)
[2019-10-21] MEDS: Heparin 25,000 UNIT/250 ML D5W 25,000 UNIT/250 ML IV.SOLN IVC SCH (07:29)
[2019-10-21] MEDS: Isosorbide MONOnitrate (24 HR) 60 MG TAB.ER.24H PO SCH (08:32)
[2019-10-21] MEDS: Ranolazine 500 MG TAB.ER.12H PO SCH ×2 (08:32→20:20)
[2019-10-21] MEDS: Aspirin 81 MG TAB.CHEW PO SCH (08:32)
[2019-10-21] MEDS ORDERED: 0.9 % Sodium Chloride 2,000 ML ONE (10:30)
[2019-10-21] MEDS ORDERED: Heparin 1,000 UNITS/500 mL 500 ML ONE (10:30)
[2019-10-21] MEDS ORDERED: Nitroglycerin 1,000 MCG/10 ML VIAL IV ONE (10:31)
[2019-10-21] MEDS ORDERED: *HR* Heparin 10,000 UNIT/10 ML VIAL ONE (10:31)
[2019-10-21] MEDS ORDERED: ISOVUE-370 200 ML INFUS..BTL ONE (10:31)
[2019-10-21] MEDS ORDERED: *HR* Midazolam HCl 2 MG/2 ML VIAL ONE (10:40)
[2019-10-21] MEDS ORDERED: *HR* FentaNYL (PF) 100 MCG/2 ML VIAL ONE (10:40)
[2019-10-21] MEDS ORDERED: 0.9 % Sodium Chloride 1,000 ML IVC SCH (11:45)
[2019-10-21] MEDS ORDERED: Cyanocobalamin (B-12) 1,000 MCG/ML VIAL IM SCH (15:00)
[2019-10-21] MEDS: Loratadine 10 MG TABLET PO SCH (20:21)
[2019-10-22 07:46] LABS: BUN/Creatinine Ratio 20 (6-26); Blood Urea Nitrogen 26 mg/dL (8-23); Calcium 8.8 mg/dL (8.6-10.3); Carbon Dioxide 26 mEq/L (23-29); Chloride 104 mEq/L (98-107); Glucose 85 mg/dL (70-105); Osmolality,Calculated 286 (280-300); Potassium 4.8 mEq/L (3.5-5.1); Sodium 136 mEq/L (136-145); eGFR For African Americans > 60 (> 60); eGFR For Non-African Americans 53 (> 60)
[2019-10-22 07:50] LABS: Basophils % 0.5 %; Eosinophils # 0.3 K/mcL (0.0-0.6); Hematocrit 44.5 % (37.5-50.1); Hemoglobin 14.7 g/dL (12.9-16.9); Immature Granulocytes % 0.3 % (0-4); Lymphocytes # 0.9 K/mcL (0.6-4.6); Lymphocytes % 14.6 %; Mean Corpuscular Hemoglobin 30.8 pg (28.0-33.3); Mean Corpuscular Volume 93.1 fL (83.0-100.0); Mean Platelet Volume 9.7 fL (9.4-12.4); Monocytes # 0.7 K/mcL (0.0-1.3); Monocytes % 10.9 %; Neutrophils # 4.5 K/mcL (1.6-8.9); Platelet Count 157 K/mcL (140-400); Red Blood Count 4.78 M/mcL (4.19-5.50); Red Cell Distribution Width 13.2 % (11.5-14.5); Segmented Neutrophils % 69.7 %; White Blood Count 6.4 K/mcL (4.3-11.1)
[2019-10-22] MEDS: Ranolazine 500 MG TAB.ER.12H PO SCH (08:44)
[2019-10-22] MEDS: Isosorbide MONOnitrate (24 HR) 60 MG TAB.ER.24H PO SCH (08:44)
[2019-10-22] MEDS: Aspirin 81 MG TAB.CHEW PO SCH (08:45)
[2019-10-22] MEDS ORDERED: Folic Acid 1 MG TABLET PO SCH (09:00)
[2019-10-22 15:27] VITALS: BP 108/67
[2019-10-23] MEDS ORDERED: Metoprolol XL (24 HR) Succ 25 MG TAB.ER.24H PO SCH (09:00)
== END 2019-10-22 18:05 | disposition short-term general hospital (02) | DRG 281 ==
LOC: 3ANU 01:15 → EMEROOARM 01:15 → SUATTDRO 07:53 → 3ANU 10:37 → SUATTDRO 10-21 13:39
PROVIDERS: ADMIT Pharmacist; ATTEND Internal Medicine

== ENCOUNTER 2019-11-10 11:41 | Observation (INO) ==
[2019-11-10 12:27] LABS: Basophils % 0.6 %; Eosinophils # 0.3 K/mcL (0.0-0.6); Eosinophils % 4.1 %; Hematocrit 37.7 % (37.5-50.1); Hemoglobin 12.1 g/dL (12.9-16.9); Immature Granulocytes % 0.4 % (0-4); Lymphocytes # 0.8 K/mcL (0.6-4.6); Lymphocytes % 11.2 %; Mean Corpuscular HGB Conc 32.1 g/dL (31.6-35.5); Mean Corpuscular Hemoglobin 30.3 pg (28.0-33.3); Mean Corpuscular Volume 94.5 fL (83.0-100.0); Mean Platelet Volume 9.6 fL (9.4-12.4); Monocytes # 0.6 K/mcL (0.0-1.3); Monocytes % 8.7 %; Neutrophils # 5.1 K/mcL (1.6-8.9); Platelet Count 188 K/mcL (140-400); Red Blood Count 3.99 M/mcL (4.19-5.50); Red Cell Distribution Width 13.5 % (11.5-14.5); White Blood Count 6.8 K/mcL (4.3-11.1)
[2019-11-10 12:32] LABS: Bilirubin,Urine Negative (Negative); Blood,Urine Large (Negative); Clarity,Urine Turbid (Clear); Color,Urine Yellow (Yellow); Glucose,Urine (UA) Normal (Normal); Ketones,Urine Negative (Negative); Leukocyte Esterase,Urine Small (Negative); Mucus,Urine Few per lpf (None-Few); Nitrite,Urine Negative (Negative); Protein,Urine 70 mg/dL (Neg-Trace); RBC,Urine TNTC per hpf (0-3); Specific Gravity,Urine 1.024 (1.010-1.025); WBC,Urine 15-30 per hpf (0-3)
[2019-11-10 12:50] LABS: BUN/Creatinine Ratio 20 (6-26); Blood Urea Nitrogen 27 mg/dL (8-23); Calcium 8.5 mg/dL (8.6-10.3); Carbon Dioxide 24 mEq/L (23-29); Chloride 111 mEq/L (98-107); Glucose 115 mg/dL (70-105); Magnesium 2.3 mg/dL (1.6-2.6); Osmolality,Calculated 296 (280-300); Phosphorous 3.9 mg/dL (2.7-4.5); Potassium 4.2 mEq/L (3.5-5.1); Sodium 140 mEq/L (136-145); Troponin I < 0.03 ng/mL (< 0.04); eGFR For African Americans > 60 (> 60); eGFR For Non-African Americans 51 (> 60)
[2019-11-10] MEDS ORDERED: cefTRIAXone 1,000 MG in Water for inj. (sterile) 10 ML IVP ONE (13:12)
[2019-11-10] MEDS ORDERED: MOM Conc 10 ML UD.LIQ PO PRN (15:01)
[2019-11-10] MEDS ORDERED: Ondansetron 4 MG/2 ML VIAL IVP PRN (15:01)
[2019-11-10] MEDS ORDERED: *HR* HYDROcodone/Acet 5/325 mg TABLET PO PRN (15:01)
[2019-11-10] MEDS ORDERED: *HR* Promethazine 25 MG/ML VIAL IVP PRN (15:01)
[2019-11-10] MEDS ORDERED: Acetaminophen 325 MG TABLET PO PRN (15:01)
[2019-11-10] MEDS ORDERED: Naloxone 0.4 MG/ML INJ IVP PRN (15:01)
[2019-11-10] MEDS ORDERED: Mag Hydrox/Al Hydrox/Simeth 30 ML UDC PO PRN (15:01)
[2019-11-11 02:09] LABS: Hematocrit 36.4 % (37.5-50.1); Hemoglobin 11.8 g/dL (12.9-16.9); Mean Corpuscular HGB Conc 32.4 g/dL (31.6-35.5); Mean Corpuscular Hemoglobin 30.7 pg (28.0-33.3); Mean Corpuscular Volume 94.8 fL (83.0-100.0); Mean Platelet Volume 9.6 fL (9.4-12.4); Platelet Count 165 K/mcL (140-400); Red Blood Count 3.84 M/mcL (4.19-5.50); Red Cell Distribution Width 13.3 % (11.5-14.5); White Blood Count 5.7 K/mcL (4.3-11.1)
[2019-11-11 02:28] LABS: Alanine Aminotransferase 7 Units/L (7-52); Albumin 3.5 g/dL (3.5-5.7); Albumin/Globulin Ratio 2.1 (1.1-2.2); Alkaline Phosphatase 51 Units/L (34-104); Aspartate Amino Transferase 9 Units/L (13-39); BUN/Creatinine Ratio 22 (6-26); Bilirubin,Total 0.4 mg/dL (0.3-1.0); Blood Urea Nitrogen 30 mg/dL (8-23); Calcium 8.1 mg/dL (8.6-10.3); Carbon Dioxide 23 mEq/L (23-29); Chloride 109 mEq/L (98-107); Chol/HDL Ratio 2.5 (0-4.9); Cholesterol 89 mg/dL (< 200); Globulin 1.7 g/dL (2.4-3.5); Glucose 109 mg/dL (70-105); HDL Cholesterol 36 mg/dL (40-59); LDL Cholesterol,Calculated 41 mg/dL (< 100); Osmolality,Calculated 297 (280-300); Potassium 4.3 mEq/L (3.5-5.1); Sodium 140 mEq/L (136-145); Total Protein 5.2 g/dL (6.4-8.9); Triglycerides 61 mg/dL (< 150); eGFR For African Americans > 60 (> 60); eGFR For Non-African Americans 50 (> 60)
[2019-11-11 02:46] LABS: Vitamin B12 791 pg/mL (250-1100); Vitamin D 25 Hydroxy 25 ng/mL (30-80)
[2019-11-11] MEDS: *HR* Heparin 5,000 UNIT/ML VIAL SQ SCH ×2 (05:20→08:02)
[2019-11-11] MEDS: Isosorbide MONOnitrate (24 HR) 60 MG TAB.ER.24H PO SCH ×2 (08:14→10:51)
[2019-11-11] MEDS ORDERED: Nitroglycerin 0.4 MG TAB.SUBL SL PRN (08:49)
[2019-11-11] MEDS ORDERED: Metoprolol XL (24 HR) Succ 25 MG TAB.ER.24H PO SCH (09:00)
[2019-11-11] MEDS ORDERED: Ranolazine 500 MG TAB.ER.12H PO SCH (09:00)
[2019-11-11] MEDS ORDERED: Aspirin 81 MG TAB.CHEW PO SCH (09:00)
[2019-11-11] MEDS ORDERED: Loratadine 10 MG TABLET PO PRN (10:56)
[2019-11-11 12:25] VITALS: BP 119/62
[2019-11-11] MEDS ORDERED: cefTRIAXone 1,000 MG in 0.9 % Sodium Chloride Mini Bag 100 ML IVPB SCH (14:00)
[2019-11-11] MEDS ORDERED: Famotidine 20 MG TABLET PO SCH (21:00)
[2019-11-12] MEDS ORDERED: Metoprolol XL (24 HR) Succ 25 MG TAB.ER.24H PO SCH (09:00)
== END 2019-11-11 15:55 | disposition home or self-care (01) ==
LOC: 2ANU 11:41 → EMEROOARM 11:41 → SUATTDRO 14:54 → 2ANU 15:25
PROVIDERS: ADMIT Internal Medicine; ATTEND Internal Medicine